=== PATIENT | female | born 1950 | race Caucasian/White ===

== ENCOUNTER 2018-11-11 07:45 | Day surgery (SDC) | payer MEDICARE ==
[~2018-11-11 07:45] MED LIST: Buffered Lidocaine 1% SYRIN* 1 ML/SYRINGE INTRADERM ONE; Famotidine IV* 10 MG/ML 2 ML (20 mg) IV ONE; Lactated Ringers 1000 ML Bag* 1,000 ML IV SCH
[2018-11-11] MEDS ORDERED: Midazolam* 1 MG/ML 2 ML VIAL (2 MG) ONE (08:08)
[2018-11-11] MEDS ORDERED: fentaNYL* 50 MCG/ML 2 ML VIAL (100 MCG VIAL) ONE (08:08)
[2018-11-11] MEDS ORDERED: Famotidine IV* 10 MG/ML 2 ML (20 mg) ONE (08:13)
[2018-11-11] MEDS ORDERED: Bupivacaine 0.25% SDV PF* 10 ML VIAL INJ ONE (08:46)
[2018-11-11] MEDS ORDERED: Propofol* 10 MG/ML 20 ML BTL ONE (08:59)
[2018-11-11] MEDS ORDERED: Ketorolac INJ* 30 MG/ML 1 ML VIAL ONE (08:59)
[2018-11-11] MEDS ORDERED: Lidocaine 2% PF * 5 ML VIAL ONE (08:59)
[2018-11-11] MEDS ORDERED: HYDROcodone/ACETAMIN 5-325 MG* 1 TAB PO PRN (09:00)
[2018-11-11] MEDS ORDERED: Ondansetron INJ* 2 MG/ML VIAL IV PRN (09:00)
[2018-11-11] MEDS ORDERED: Acetaminophen TAB* 325 MG PO PRN (09:00)
[2018-11-11] MEDS ORDERED: PROCHLORPERAZINE INJ 5 MG/ML 2 ML VIAL IV PRN (09:00)
[2018-11-11] MEDS ORDERED: Naloxone* 0.4 MG/ML 1 ML VIAL IV PRN (09:00)
[2018-11-11] MEDS ORDERED: Levalbuterol 0.63MG/3ML NEB* UNIT OF USE INH PRN (09:00)
[2018-11-11 09:48] VITALS: BP 126/73
--- NOTE | 2018-11-11 14:15 | OP ---
DATE OF OPERATION: 11/11/18 [facility] DATE OF : 52 SURGEON: Dr. Ousmane Tan. COLLECTION TELLER: CAROLE Norton ANESTHESIOLOGIST: Dr. Gregorio. ANESTHESIA: Local MAC. PRE-OP DIAGNOSIS: Right chronic middle trigger finger. POST-OP DIAGNOSIS: Right chronic middle trigger finger. OPERATIVE PROCEDURE: Right middle trigger finger release of A1 ronnie with flexor tenosynovectomy. INDICATIONS: Marlyn has chronic trigger finger. We talked about risks and benefits. She has some associated tenosynovitis with this. She understands the risks and benefits and wants to proceed with surgery. ESTIMATED BLOOD LOSS: 2 mL. COMPLICATIONS: None. FINDINGS: See above and below. DESCRIPTION OF PROCEDURE: Marlyn was seen in the preoperative holding area. The correct side, site, and procedure were identified. We came back to the operating room where the arm was prepped and draped in the usual fashion and a time-out was performed. I had infiltrated 0.25% plain Marcaine in the operative area. The arm was exsanguinated with the Esmarch and the tourniquet inflated to 250 mmHg. I made a 1 cm incision in her distal palmar crease over the right middle finger A1 ronnie. Dissection was carried down and full-thickness flaps were raised bluntly off the tendon sheath. Ragnell retractors were placed. I then released the A1 ronnie along the radial third longitudinally. The release was completed distally and proximally with tenotomy scissors. There was some chronic tenosynovitis typical of the chronic trigger finger and this was all excised back to clean, healthy tendons. There was some fraying of the FDS tendon. The wound was irrigated out. The skin was closed with 4-0 nylon suture. Soft dressings were applied and she was taken to the recovery room in stable condition. [id number]/[facility] #: [id number] MTDD
== END 2018-11-11 10:17 | disposition home or self-care (01) ==
LOC: OREAST 07:45
PROVIDERS: ATTEND Orthopaedic Surgery Hand Surgery
DX: M65.331 Trigger finger, right middle finger (principal); M65.841 Other synovitis and tenosynovitis, right hand; I10 Essential (primary) hypertension; E78.00 Pure hypercholesterolemia, unspecified; M19.90 Unspecified osteoarthritis, unspecified site; Z79.899 Other long term (current) drug therapy; F17.210 Nicotine dependence, cigarettes, uncomplicated
CPT/HCPCS: J1885; J2250; J2704; J3010; J3490

== ENCOUNTER 2019-06-06 13:13 | Day surgery (SDC) | payer MEDICARE ==
[~2019-06-06 13:13] MED LIST changes: +Dexamethasone TAB* 4 MG PO ONE; +DiMENhydriNATE IV* 50 MG/ML VIAL IV PUSH PRN; +HYDROmorphone INJ1* 1 MG/ML SYRINGE IV PRN; +Naloxone* 0.4 MG/ML 1 ML VIAL IV PRN; +Ondansetron ODT TAB* 4 MG PO ONE; +PROCHLORPERAZINE INJ 5 MG/ML 2 ML VIAL IV PRN; +Scopolamine 1.5 mg* PATCH TRANSDERM PRN; +fentaNYL* 50 MCG/ML 2 ML VIAL (100 MCG VIAL) IV PRN; +oxyCODONE/Acetamin 5/325 MG* TAB PO PRN
[2019-06-06] MEDS ORDERED: KETAMINE HCL* 50 MG/ML 10 ML VIAL ONE (13:21)
[2019-06-06] MEDS ORDERED: Midazolam* 1 MG/ML 5 ML VIAL (5 MG) ONE (13:21)
[2019-06-06] MEDS ORDERED: fentaNYL* 50 MCG/ML 2 ML VIAL (100 MCG VIAL) ONE (13:21)
[2019-06-06] MEDS ORDERED: Ondansetron ODT TAB* 4 MG ONE (13:32)
[2019-06-06] MEDS ORDERED: Famotidine IV* 10 MG/ML 2 ML (20 mg) ONE (13:33)
[2019-06-06] MEDS ORDERED: Dexamethasone TAB* 4 MG ONE (13:33)
[2019-06-06] MEDS ORDERED: ceFAZolin 2 GM in NS PREMIX(*) 2 GM/100 ML BAG IVPB ONE (13:33)
[2019-06-06] MEDS ORDERED: Lidocaine 1% w EPI 1:200,000* SDV 30 ML VIAL ONE (14:04)
[2019-06-06] MEDS ORDERED: Bupivacaine 0.25% SDV* 30 ML ONE (14:04)
[2019-06-06] MEDS ORDERED: Ropivacaine 0.2% * 2 MG/ML VIAL ONE (14:24)
[2019-06-06] MEDS ORDERED: Ketorolac INJ* 30 MG/ML 1 ML VIAL ONE (14:36)
[2019-06-06] MEDS ORDERED: PROCHLORPERAZINE INJ 5 MG/ML 2 ML VIAL ONE (14:36)
[2019-06-06] MEDS ORDERED: Propofol* 10 MG/ML 20 ML BTL ONE (14:36)
[2019-06-06] MEDS ORDERED: Lidocaine 2% PF * 5 ML VIAL ONE (14:36)
[2019-06-06] MEDS ORDERED: EPHEDrine (Pressors)* 50 MG/ML VIAL ONE (14:42)
[2019-06-06] MEDS ORDERED: oxyCODONE/Acetamin 5/325 MG* TAB ONE (15:51)
[2019-06-06 16:35] VITALS: BP 130/79
--- NOTE | 2019-06-06 22:05 | OP ---
CC: PCPHawa NP * DATE OF OPERATION: 06/06/19 - LOCATED WITHIN [facility] DATE OF : 52 SURGEON: Floridalma Chaparro MD WIRE WEAVER: None available. ANESTHESIOLOGIST: Dr. Santoro. ANESTHESIA: General. 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 OPERATIVE PROCEDURES: Left knee arthroscopy with partial medial and partial lateral meniscectomy and synovectomy with removal of plica and medial femoral condyle chondroplasty and patellar chondroplasty. COMPLICATIONS: None. ESTIMATED BLOOD LOSS: Minimal. INDICATIONS: Marlyn Garcia is a 59-year-old female with a persistent knee pain and knee injury that happened for several months. She had sharp catching pain. She was diagnosed with some arthritic type of pain. She stated specifically she was having mechanical symptoms. We talked about the risks and benefits of arthroscopy versus possibly a total knee. The patient elected to proceed with arthroscopy. Risks and benefits were discussed at length included, but not limited to bleeding; infection; damage to nerves, vessels, surrounding structures; wound nonhealing; persistent pain; need for further surgery; scarring; stiffness; incomplete relief of symptoms; and risks of anesthesia, risk of DVT. She has elected to proceed. DESCRIPTION OF PROCEDURE: The patient was greeted in the preoperative area by the attending surgeon. Correct extremity was marked. Consent was confirmed. The patient was brought back to the operating suite. She was placed in the supine position on the operating table, then underwent general anesthesia and LMA intubation. The left leg was then prepped and draped in the usual sterile fashion beginning with chlorhexidine soap, scrub, and alcohol wipe and a final prep with ChloraPrep. After appropriate surgical pause indicating site, side, procedure, and administration of antibiotics, the knee was intra-articularly injected with 1% lidocaine with epi. The anterolateral portal was made sharp with an 11-blade, the scope was introduced into the joint. It was examined. There was abundant synovitis that was present. There was plica medially and laterally. An anteromedial portal was made and fashioned using an 18-gauge needle for localization. Electrocautery device was used to maintain hemostasis. ACL and PCL were intact. The patella had areas of grade 2 changes along with a stable flap. In the trochlear head there was grade 2 changes and very medially there was grade 3 changes. There was an area in the medial femoral condyle. It had grade 4 changes with ridges. Medial and lateral gutters were intact. There was abundant synovitis that was present that was removed prior to visualizing the gutters. The medial compartment was examined. There was areas of grade 2 and 3 changes to the medial femoral condyle in the weightbearing zone. The medial meniscus had unstable flap. This was debrided back using jf and biters. There was small parameniscal cyst that was decompressed as well. The anterior horn of the medial meniscus was intact. Once any unstable debris was removed and the meniscus removed, attention was directed to the notch. ACL and PCL were intact. The knee was placed in a [id number] position and the lateral compartment had grade 1 to 2 changes. There was some fraying of the meniscus with a tearing of the root. This was debrided back using a shaver. The knee was then thoroughly lavaged and removed of any loose debris and fluid. Final images were obtained. The wounds were copiously irrigated with sterile saline. The portals were closed with 3-0 nylon in an interrupted fashion. The knee was intra-articularly and superficially injected with 0.25% ropivacaine. Sterile dressings were applied and a Cryo/Cuff was applied. She was awoken from anesthesia and transferred to PACU in stable condition. POSTOPERATIVE PLAN: She will be weightbearing as tolerated with crutches for 3 to 5 days. Discharged on pain medications. DVT prophylaxis was considered, but deferred due to no previous personal or family history. I will see the patient back in 10 to 14 days. [id number]/[facility] #: [id number] [facility]ERY[facility]y
[2019-06-09] MEDS ORDERED: Scopolamine PATCH Remove* 1 NOTE MISC PATCH OFF ONE (05:56)
== END 2019-06-06 16:28 | disposition home or self-care (01) ==
LOC: OREAST 13:13
PROVIDERS: ATTEND Orthopaedic Surgery
DX: S83.232A Complex tear of medial meniscus, current injury, left knee, initial encounter (principal); M93.862 Other specified osteochondropathies, left lower leg; M67.52 Plica syndrome, left knee; I10 Essential (primary) hypertension; E78.00 Pure hypercholesterolemia, unspecified; M19.90 Unspecified osteoarthritis, unspecified site; Z72.0 Tobacco use; X58.XXXA Exposure to other specified factors, initial encounter; Y92.9 Unspecified place or not applicable
CPT/HCPCS: A9270-GY; J0690; J0780; J1885; J2001; J2250; J2704; J2795; J3010; J3490; J8540